=== PATIENT | female | born 1965 ===

== ENCOUNTER 2021-05-13 19:46 | Emergency (ER) | payer OTHER ==
[~2021-05-13] VITALS: Ht 162.6 cm; Wt 67.2 kg
[2021-05-13 19:49] VITALS: BP 142/62
--- NOTE | 2021-05-13 21:25 | NUR ---
pt not in lobby
--- NOTE | 2021-05-13 21:39 | NUR ---
not in lobby
--- NOTE | 2021-05-13 21:56 | NUR ---
not in lobby [facility]
== END 2021-05-13 21:58 | disposition left against medical advice (07) ==
LOC: ED 20:00
DX: R53.83 Other fatigue (principal); Z53.21 Procedure and treatment not carried out due to patient leaving prior to being seen by health care provider